=== PATIENT | female | born 1965 | race Caucasian/White ===

== ENCOUNTER → 2016-10-04 | Outpatient (CLI) | payer OTHER ==
[~2016-10-04] MED LIST: BIOT1TAB16; CETI10CA19 PO; GARL3CAP; HYDR-4074 PO; IBUP-1547 PO; LISI10TA7 PO; MULT-933 PO; OMEG300C; [UNRECOGNIZED DRUG - CODE] PO
== END ==
LOC: IMA.MDS 09:02
PROVIDERS: ATTEND Family Medicine
DX: M17.0 Bilateral primary osteoarthritis of knee (principal)